=== PATIENT | male | born 1965 | race Caucasian/White ===

== ENCOUNTER 2017-11-07 20:20 | Emergency (ER) | payer OTHER ==
--- NOTE | 2017-11-07 20:38 | PDOC ---
Rapid Medical Evaluation Time Seen by Provider: 11/07/17 20:37 Medical Evaluation: 11/07/17 20:37 Pt presents to the ED: n/v , epigastric pain, unintentional wt loss Pt on brief exam: vss, no distention, good color Pt ordered for: cbc, comp, mag, lipase, mag, ua Pt to proceed to the ED Discharge Disposition - Diagnosis Nausea & vomiting - Referrals - Patient Instructions - Post Discharge Activity
[2017-11-07 20:39] VITALS: BP 103/70; PULSE 69; TEMP 98.9; BMI 32.5
[2017-11-07] MEDS ORDERED: ONDANSETRON 4 MG/2 ML VIAL IVPUSH ONE (20:39)
[2017-11-07] MEDS ORDERED: SODIUM CHLORIDE 1,000 ML IV SCH (20:39)
[2017-11-07 21:01] LABS: BASO % 0.3 % (0-2.0); EOS % 4.8 % (0-4.5); HEMATOCRIT 45.1 % (35.4-49); HEMOGLOBIN 15.1 GM/dL (11.7-16.9); LYMPH % 23.6 % (8-40); MCH 30.7 pg (25.7-33.7); MCHC 33.4 g/dl (32.0-35.9); MEAN CELL VOLUME 91.8 fl (80-96); MEAN PLT VOLUME 11.8 fl (7.5-11.1); NEUT % 57.3 % (42.8-82.8); PLATELET COUNT 122 K/MM3 (134-434); RBC 4.91 M/mm3 (4.00-5.60); RDW 14.5 % (11.9-15.9)
[2017-11-07 21:03] LABS: URINE APPEARANCE CLEAR; URINE BILIRUBIN NEGATIVE (NEGATIVE); URINE BLOOD 1+ (NEGATIVE); URINE COLOR YELLOW; URINE GLUCOSE (UA) NEGATIVE (NEGATIVE); URINE KETONE NEGATIVE (NEGATIVE); URINE LEUK ESTERASE NEGATIVE (NEGATIVE); URINE NITRITE NEGATIVE (NEGATIVE); URINE PROTEIN NEGATIVE (NEGATIVE); URINE UROBILINOGEN NEGATIVE mg/dL (0.2-1.0)
[2017-11-07 21:31] LABS: EPI CELLS RARE /HPF (FEW); URINE MUCUS RARE
[2017-11-07 21:39] LABS: ALBUMIN 3.4 g/dl (3.4-5.0); ANION GAP 8 (8-16); BLOOD UREA NITROGEN 16 mg/dL (7-18); CALCIUM 8.1 mg/dL (8.5-10.1); CHLORIDE 105 mmol/L (98-107); CO2 25 mmol/L (21-32); GLUCOSE,RANDOM 94 mg/dL (74-106); LIPASE 98 U/L (73-393); MAGNESIUM 2.1 mg/dL (1.8-2.4); POTASSIUM 3.7 mmol/L (3.5-5.1); SODIUM 138 mmol/L (136-145)
[2017-11-07 21:42] LABS: ALK PHOS 68 U/L (45-117); BILIRUBIN,TOTAL 0.6 mg/dL (0.2-1.0); CREATININE 0.9 mg/dL (0.7-1.3); SGOT/AST 11 U/L (15-37); SGPT/ALT 26 U/L (12-78); TOT PROT 6.6 g/dl (6.4-8.2)
--- NOTE | 2017-11-07 22:03 | PDOC ---
History of Present Illness - General Chief Complaint: Pain, Acute Stated Complaint: NAUSEA/VOMITING Time Seen by Provider: 11/07/17 20:37 History Source: Patient - History of Present Illness Initial Comments: 11/07/17 22:21 51 year old male work with pain to epigastric area radiating down to mid abdomen. + NV, denies diarrhea. denies sick contact denies urinary symptoms, flank pain, chest pain, diaphoresis, 11/07/17 23:22 Past History - Past Medical History Allergies/Adverse Reactions: Allergies Allergy/AdvReac Type Severity Reaction Status Date / Time No Known Allergies Allergy Verified 11/08/17 22:50 Home Medications: Ambulatory Orders Famotidine [Pepcid] 40 mg PO DAILY #14 tablet 11/08/17 Ibuprofen 800 mg PO TID #30 tablet 11/09/17 Ondansetron [Zofran *Odt*] 4 mg SL TID #30 od.tablet 11/09/17 COPD: No - Suicide/Smoking/Psychosocial Hx Smoking History: Never smoked Review of Systems - Review of Systems Able to Perform ROS?: Yes Is the patient limited Lebanese proficient: No Constitutional: No: Symptoms Reported, See HPI, Chills, Diaphoresis, Fever, Loss of Appetite, Malaise, Night Sweats, Weakness, Weight Stable, Unintentional Wgt. Loss, Unexplained wgt Loss, Other ABD/GI: Yes: Nausea, Vomiting, Abdominal cramping. No: Symptoms Reported, See HPI, Abdominal Distended, Abd. Pain w/ defecation, Blood Streaked Bowels, Constipated, Diarrhea, Difficulty Swallowing, Poor Appetite, Poor Fluid Intake, Rectal Bleeding, Indigestion, Tarry Stools, Other *Physical Exam - Vital Signs Last Vital Signs Temp Pulse Resp BP Pulse Ox 98.9 F 69 18 103/70 98 11/07/17 20:36 11/07/17 20:36 11/07/17 20:36 11/07/17 20:36 11/07/17 20:36 - Physical Exam General Appearance: Yes: Appropriately Dressed Respiratory/Chest: positive: Lungs Clear, Normal Breath Sounds Cardiovascular: positive: Regular Rhythm, Regular Rate, S1, S2. negative: Edema , JVD, Murmur, Bradycardia, Tachycardia, Diastolic Murmur, Systolic Murmur, Gallop/S3, Gallop/S4, Irregularly Irregular, Irregular, Other Gastrointestinal/Abdominal: positive: Normal Bowel Sounds, Tender (epigastric> has generalized abdominal pain), Soft Extremity: positive: Normal Inspection, Normal Range of Motion ED Treatment Course - LABORATORY CBC & Chemistry Diagram: 11/07/17 20:50 11/07/17 20:50 - ADDITIONAL ORDERS Additional order review: Laboratory Results 11/07/17 11/07/17 20:50 20:50 Sodium 138 Potassium 3.7 Chloride 105 Carbon Dioxide 25 Anion Gap 8 BUN 16 Creatinine 0.9 Creat Clearance w eGFR > 60 Random Glucose 94 Calcium 8.1 L Magnesium 2.1 Total Bilirubin 0.6 AST 11 L ALT 26 Alkaline Phosphatase 68 Total Protein 6.6 Albumin 3.4 Lipase 98 Urine Color Yellow Urine Appearance Clear Urine pH 5.0 Ur Specific [place] 1.027 Urine Protein Negative Urine Glucose (UA) Negative Urine Ketones Negative Urine Blood 1+ H Urine Nitrite Negative Urine Bilirubin Negative Urine Urobilinogen Negative Ur Leukocyte Esterase Negative Urine WBC (Auto) 1 Urine RBC (Auto) 2 Ur Epithelial Cells Rare Urine Mucus Rare 11/07/17 20:50 RBC 4.91 MCV 91.8 MCHC 33.4 RDW 14.5 MPV 11.8 H Neutrophils % 57.3 Lymphocytes % 23.6 Monocytes % 14.0 H Eosinophils % 4.8 H Basophils % 0.3 Progress Note - Progress Note Progress Note: A: Abdominal pain P: CBC CMP Lipase U/S: wnl Medical Decision Making - Medical Decision Making 11/08/17 00:21 patient reports slight improvement in pain. will d/c home with pepcid and maalox. and close pmd follow up recommended with patient. patient verbalized understanding. *DC/Admit/Observation/Transfer Diagnosis at time of Disposition: Nausea & vomiting Qualifiers: Vomiting type: unspecified Vomiting Intractability: non-intractable Qualified Code(s): R11.2 - Nausea with vomiting, unspecified Gastritis Qualifiers: Gastritis type: unspecified gastritis Chronicity: acute Gastritis bleeding: without bleeding Qualified Code(s): K29.00 - Acute gastritis without bleeding - Discharge Dispostion Disposition: HOME - Prescriptions Prescriptions: Famotidine [Pepcid] 40 mg PO DAILY #14 tablet - Referrals Referrals: Alayna Salinas MD [Primary Care Provider] - - Patient Instructions Printed Discharge Instructions: [place] Diet, DI for Gastritis Additional Instructions: start a bland diet - Post Discharge Activity Forms/Work/School Notes: Back to Work
[2017-11-07] MEDS ORDERED: FAMOTIDINE IV 20 MG/12 ML VIAL IVPUSH SCH (22:45)
[2017-11-07] MEDS ORDERED: ONDANSETRON 4 MG/2 ML VIAL ONE (23:00)
[2017-11-07] MEDS ORDERED: FAMOTIDINE 20 MG/50 ML IVPB 20 MG/50 ML MG IVPB ONE (23:00)
[2017-11-07] MEDS ORDERED: FAMOTIDINE IV 20 MG/12 ML VIAL IVPUSH ONE (23:33)
[2017-11-08] MEDS ORDERED: ACETAMINOPHEN 325 MG TABLET (FP) PO ONE (00:03)
[2017-11-08] MEDS ORDERED: ACETAMINOPHEN 325 MG TABLET (FP) ONE (00:04)
[2017-11-08] MEDS ORDERED: MAG HYDROX/AL HYDROX/SIMETH 30 ML UNIT-DOSE CUP PO ONE (00:09)
[2017-11-08] MEDS ORDERED: MAG HYDROX/AL HYDROX/SIMETH 30 ML UNIT-DOSE CUP ONE (00:11)
--- NOTE | 2017-11-08 15:10 | EKG ---
Test Reason : Blood Pressure : / mmHG Vent. Rate : 060 BPM Atrial Rate : 060 BPM P-R Int : 134 ms QRS Dur : 098 ms QT Int : 430 ms P-R-T Axes : 053 054 037 degrees QTc Int : 430 ms SINUS RHYTHM WITH MARKED SINUS ARRHYTHMIA OTHERWISE NORMAL ECG NO PREVIOUS ECGS AVAILABLE Confirmed by Reji Ramirez MD ([id number]) on 11/08/2017 3:10:28 PM Referred By: Confirmed By:Reji Ramirez MD
== END 2017-11-08 00:36 | disposition home or self-care (01) ==
LOC: JER 20:20
PROC: 3E033GC Introduction of Other Therapeutic Substance into Peripheral Vein, Percutaneous Approach (ICD-10-PCS; principal; 2017-11-07)
PROC: 3E033NZ Introduction of Analgesics, Hypnotics, Sedatives into Peripheral Vein, Percutaneous Approach (ICD-10-PCS; 2017-11-07)
PROC: 3E0333Z Introduction of Anti-inflammatory into Peripheral Vein, Percutaneous Approach (ICD-10-PCS; 2017-11-07)
DX: I88.0 Nonspecific mesenteric lymphadenitis (principal)
CPT/HCPCS: 36415; 76700-TC; 80053; 81003; 81015; 83690; 83735; 85025; 93005; 93010; 96374; 96375; 99282-25

== ENCOUNTER 2017-11-08 22:40 | Emergency (ER) | payer OTHER ==
[2017-11-08 22:52] VITALS: BP 139/67; PULSE 64; TEMP 98.5; BMI 32.5
--- NOTE | 2017-11-09 01:29 | PDOC ---
History of Present Illness - General Exam Limitations: No Limitations - History of Present Illness Initial Comments: 11/09/17 01:50 The patient is a 51 year old male, with no significant past medical history, who presents to the emergency department with, diffuse abdominal pain. Patient reports the abdominal pain as currently 8/10 but at worst was 10/10. Patient describes the abdominal pain as colicky in nature and towards the periumbilical area. Patient reports he was seen yesterday here at [facility] for nausea, vomiting and abdominal pain and was discharged with Pepcid. He reports mild relief with the Pepcid. However, the pain has progressively gotten worse since yesterday. He reports he has been unable to eat much with his last meal at 8 pm yesterday night. He denies any recent fevers, chills, headache or dizziness. He denies any recent chest pain or shortness of breath. Allergies: NKA Past surgical history: None reported. Social History: Nonsmoker. Denies recreational drug use. Social drinker. Primary Care Physician: Dr. Salinas <Javad Freeman - Last Filed: 11/09/17 04:31> - General History Source: Patient <VinnieRobert - Last Filed: 11/09/17 04:45> - General Chief Complaint: Pain Stated Complaint: NAUSEA/VOMITING Time Seen by Provider: 11/09/17 01:26 Past History <Javad Freeman - Last Filed: 11/09/17 04:31> - Past Medical History COPD: No - Suicide/Smoking/Psychosocial Hx Smoking History: Never smoked Number of Cigarettes Smoked Daily: 2 Information on smoking cessation initiated: No <Robert Birmingham - Last Filed: 11/09/17 04:45> - Past Medical History Allergies/Adverse Reactions: Allergies Allergy/AdvReac Type Severity Reaction Status Date / Time No Known Allergies Allergy Verified 11/08/17 22:50 Home Medications: Ambulatory Orders Famotidine [Pepcid] 40 mg PO DAILY #14 tablet 11/08/17 Ibuprofen 800 mg PO TID #30 tablet 11/09/17 Ondansetron [Zofran *Odt*] 4 mg SL TID #30 od.tablet 11/09/17 Review of Systems - Review of Systems Comments:: 11/09/17 01:51 CONSTITUTIONAL: Absent: fever, no chills, no fatigue EYES: Absent: visual changes ENT: Absent: ear pain, no sore throat CARDIOVASCULAR: Absent: chest pain, no palpitations RESPIRATORY: Absent: cough, no SOB GI: Present: +Diffuse abdominal pain Absent: no nausea, no vomiting, no constipation, no diarrhea GENITOURINARY: Absent: dysuria, no frequency, no hematuria MUSKULOSKELETAL: Absent: back pain, no arthralgia, no myalgia SKIN: Absent: rash NEURO: Absent: headache <Javad Freeman - Last Filed: 11/09/17 04:31> *Physical Exam - Vital Signs Last Vital Signs Temp Pulse Resp BP Pulse Ox 98.5 F 64 18 139/67 98 11/08/17 22:51 11/08/17 22:51 11/08/17 22:51 11/08/17 22:51 11/08/17 22:51 - Physical Exam Comments: 11/09/17 01:52 GENERAL: Well-appearing, well-nourished. No apparent distress. HEENT: Normocephalic, atraumatic. PERRL, EOM intact. CARDIOVASCULAR: Normal S1, S2. Regular rate and rhythm. PULMONARY: Clear to auscultation bilaterally. ABDOMEN: +Tender diffusely Soft, obese, non-distended. EXTREMITIES: Normal ROM in all four extremities. No gross deformities. SKIN: Warm, dry. No rash NEUROLOGICAL: No focal neurological deficits. <Javad Freeman - Last Filed: 11/09/17 04:31> - Vital Signs Last Vital Signs Temp Pulse Resp BP Pulse Ox 98.5 F 64 18 139/67 98 11/08/17 22:51 11/08/17 22:51 11/08/17 22:51 11/08/17 22:51 11/08/17 22:51 <Robert Birmingham - Last Filed: 11/09/17 04:45> ED Treatment Course - LABORATORY CBC & Chemistry Diagram: 11/09/17 02:00 11/09/17 02:00 - RADIOLOGY Radiograph Interpretation: 11/09/17 04:31 EXAM: CT ABDOMEN AND PELVIS HISTORY: Rule out appendicitis. COMPARISON: None. FINDINGS: Lung bases are clear. The visualized cardiac chambers are normal size and configuration. Normal liver, gallbladder, pancreas, spleen, adrenal glands and kidneys. The stomach and abdominal small and large bowel are normal. There is no aortic aneurysm. There is no significant retroperitoneal lymphadenopathy. Mildly inflammed pelvic small inflammation is noted with surrounding mesenteric edema. No abscess or free air. The appendix is normal. The urinary bladder and prostate gland are normal. No pelvic free fluid is identified. There is no significant pelvic lymphadenopathy. IMPRESSION: Mild enteritis, possibly due to infection, Crohn's disease or ischemia. Reported by Haroon Fournier MD <Javad Freeman - Last Filed: 11/09/17 04:31> - LABORATORY CBC & Chemistry Diagram: 11/09/17 02:00 11/09/17 02:00 <Robert Birmingham - Last Filed: 11/09/17 04:45> Medical Decision Making - Medical Decision Making 11/09/17 04:42 Dr. Birmingham: The scribe's documentation has been prepared under my direction and personally reviewed by me in its entirery. I confirm that the note above accurately reflects all work, treatment, procedures, and medical decision making performed by me. Ct scan of abd/pel showed mesentric adentitis. Labs remained stable from yesterdays visit. Afebrile. Pt to follow up with GI. Pt encouraged to drink plenty of fluids and bed rest, Take medications as prescribed, <Robert Birmingham - Last Filed: 11/09/17 04:45> *DC/Admit/Observation/Transfer - Attestations Scribe Attestion: 11/09/17 01:53 Documentation prepared by Javad Freeman, acting as medical director occupational health for Robert Birmingham MD. <Javad Freeman - Last Filed: 11/09/17 04:31> - Discharge Dispostion Admit: No <Robert Birmingham - Last Filed: 11/09/17 04:45> Diagnosis at time of Disposition: Nausea & vomiting, Mesenteric adenitis - Discharge Dispostion Condition at time of disposition: Stable - Prescriptions Prescriptions: Ibuprofen 800 mg PO TID #30 tablet Ondansetron [Zofran *Odt*] 4 mg SL TID #30 od.tablet - Referrals Referrals: Alayna Salinas MD [Primary Care Provider] - Peter Loredo DO [Staff Physician] - - Patient Instructions Printed Discharge Instructions: DI for Mesenteric Adenitis-Adult Additional Instructions: Please with the GI doctor referred to you here in the ER. Take medications as directed. Drink plenty of fluids. Return if any problems. - Post Discharge Activity Forms/Work/School Notes: Back to Work
[2017-11-09] MEDS ORDERED: morphine CARPU-JECT 4 MG/1 ML DISP.SYRIN IVPUSH ONE (01:30)
[2017-11-09] MEDS ORDERED: ONDANSETRON 4 MG/2 ML VIAL IVPUSH STA (01:31)
[2017-11-09] MEDS ORDERED: morphine CARPU-JECT 10 MG/1 ML DISP.SYRIN ONE (01:45)
[2017-11-09] MEDS ORDERED: ONDANSETRON 4 MG/2 ML VIAL ONE (01:46)
[2017-11-09 02:10] LABS: BASO % 0.6 % (0-2.0); EOS % 6.5 % (0-4.5); HEMATOCRIT 45.3 % (35.4-49); LYMPH % 30.1 % (8-40); MCH 30.5 pg (25.7-33.7); MEAN CELL VOLUME 92.3 fl (80-96); MEAN PLT VOLUME 12.3 fl (7.5-11.1); MONO % 13.4 % (3.8-10.2); NEUT % 49.4 % (42.8-82.8); PLATELET COUNT 120 K/MM3 (134-434); RBC 4.91 M/mm3 (4.00-5.60); RDW 14.3 % (11.9-15.9)
[2017-11-09 02:26] LABS: INR 1.09 (0.82-1.09); PROTHROMBIN TIME (PATIENT) 12.3 SEC (9.98-11.88)
[2017-11-09 02:41] LABS: ALBUMIN 3.6 g/dl (3.4-5.0); ALK PHOS 69 U/L (45-117); ANION GAP 9 (8-16); BILIRUBIN,TOTAL 0.3 mg/dL (0.2-1.0); BLOOD UREA NITROGEN 14 mg/dL (7-18); CALCIUM 8.7 mg/dL (8.5-10.1); CHLORIDE 104 mmol/L (98-107); CO2 24 mmol/L (21-32); CREATININE 1.1 mg/dL (0.7-1.3); GLUCOSE,RANDOM 118 mg/dL (74-106); LIPASE 144 U/L (73-393); MAGNESIUM 2.2 mg/dL (1.8-2.4); POTASSIUM 4.2 mmol/L (3.5-5.1); SGOT/AST 20 U/L (15-37); SGPT/ALT 35 U/L (12-78); SODIUM 137 mmol/L (136-145); TOT PROT 7.3 g/dl (6.4-8.2)
[2017-11-09] MEDS ORDERED: KETOROLAC TROMETHAMINE 30 MG/1 ML VIAL IVPUSH ONE (04:33)
[2017-11-09] MEDS ORDERED: KETOROLAC TROMETHAMINE 30 MG/1 ML VIAL ONE (04:37)
== END 2017-11-09 05:13 | disposition home or self-care (01) ==
LOC: JER 22:40
DX: I88.0 Nonspecific mesenteric lymphadenitis (principal)
CPT/HCPCS: 36415; 74177-TC; 80053; 82550; 82553; 83690; 83735; 84484; 85025; 85610; 86850; 86900; 86901; 99283-25; Q9967

== ENCOUNTER 2018-04-02 15:14 | Emergency (ER) | payer SELFPAY ==
[2018-04-02 15:25] VITALS: BP 126/71; PULSE 84; TEMP 98.4; BMI 29.4
--- NOTE | 2018-04-02 15:59 | PDOC ---
History of Present Illness - General Chief Complaint: Injury Stated Complaint: FALL/ LT SIDE PAIN Time Seen by Provider: 04/02/18 15:27 History Source: Patient Exam Limitations: No Limitations - History of Present Illness Initial Comments: 04/02/18 16:34 Patient is a 52-year-old male with no past medical history who presents emergency department today complaining of left rib pain. Patient states that 2 days ago he fell down 3 steps on escalator. Since then he has had pain to the left side. Denies loss of consciousness, headache, neck pain, back pain, dizziness and lightheadedness. Patient also states that he has right ear pain as well as difficulty hearing. He states his been going on for a week. He tried using some drops which helped initially but now his symptoms have returned. Denies fevers, chills, congestion, recent illness. Past History - Travel Traveled outside of the country in the last 30 days: No Close contact w/someone who was outside of country & ill: No - Past Medical History Allergies/Adverse Reactions: Allergies Allergy/AdvReac Type Severity Reaction Status Date / Time No Known Allergies Allergy Verified 04/02/18 15:21 Home Medications: Ambulatory Orders Amoxicillin - [Amoxicillin 500mg Capsule -] 500 mg PO BID #14 capsule 04/02/18 Ibuprofen 800 mg PO TID #30 tablet 04/02/18 Ofloxacin Otic [Floxin Otic -] 10 drop OD DAILY #100 drops 04/02/18 Oxycodone HCl/Acetaminophen [Percocet 5-325 mg Tablet] 1 tab PO Q6H PRN #20 tablet MDD 4 04/02/18 COPD: No Other medical history: DENIES. - Suicide/Smoking/Psychosocial Hx Smoking History: Current every day smoker Have you smoked in the past 12 months: Yes Number of Cigarettes Smoked Daily: 5 Information on smoking cessation initiated: No Substance Use Type: None Review of Systems - Review of Systems Able to Perform ROS?: Yes Comments:: 04/02/18 17:35 CONSTITUTIONAL: Absent: fever, chills, diaphoresis, generalized weakness, malaise, loss of appetite HEENT: Present: R ear pain, difficulty hearing Absent: rhinorrhea, nasal congestion, throat pain, throat swelling, difficulty swallowing, mouth swelling, eye pain, visual Changes CARDIOVASCULAR: Absent: chest pain, loss of consciousness, palpitations, irregular heart rate, peripheral edema RESPIRATORY: Absent: cough, shortness of breath, dyspnea with exertion, orthopnea, wheezing, stridor, hemoptysis GASTROINTESTINAL: Absent: abdominal pain, abdominal distension, nausea, vomiting, diarrhea, constipation, melena, hematochezia GENITOURINARY: Absent: dysuria, frequency, urgency, hesitancy, hematuria, flank pain, genital pain MUSCULOSKELETAL: Present: L rib pain Absent: myalgia, arthralgia, joint swelling SKIN: Absent: rash, itching, pallor HEMATOLOGIC/IMMUNOLOGIC: Absent: easy bleeding, easy bruising, lymphadenopathy, frequent infections ENDOCRINE: Absent: unexplained weight gain, unexplained weight loss, heat intolerance, cold intolerance NEUROLOGIC: Absent: headache, focal weakness or paresthesias, dizziness, unsteady gait, seizure, mental status changes, bladder or bowel incontinence PSYCHIATRIC: Absent: anxiety, depression, suicidal or homicidal ideation, hallucinations. Is the patient limited Northern Irish proficient: No *Physical Exam - Vital Signs Last Vital Signs Temp Pulse Resp BP Pulse Ox 98.4 F 84 19 126/71 97 04/02/18 15:21 04/02/18 15:21 04/02/18 15:21 04/02/18 15:21 04/02/18 15:21 - Physical Exam Comments: 04/02/18 17:35 GENERAL: Well developed, well nourished. Awake and alert. No acute distress. HEENT: Normocephalic, atraumatic. PERRLA, EOMI. No conjunctival pallor. Sclera are non- icteric. Moist mucous membranes. Oropharynx is clear. R ear canal swollen with discharge, consistent with otitis externa. Unable to visualize R TM. NECK: Supple. Full ROM. No JVD. Carotid pulses 2+ and symmetric, without bruits. No thyromegaly. No lymphadenopathy. CARDIOVASCULAR: Regular rate and rhythm. No murmurs, rubs, or gallops. Distal pulses are 2+ and symmetric. PULMONARY: No evidence of respiratory distress. Lungs clear to auscultation bilaterally. No wheezing, rales or rhonchi. MUSCULOSKELETAL TTP of the L 10-12 ribs. Normal range of motion at all joints. No bony deformities or tenderness. No CVA tenderness. EXTREMITIES: No cyanosis. No clubbing. No edema. No calf tenderness. SKIN: Warm and dry. Normal capillary refill. No rashes. No jaundice. Scabbed abrasion to L flank, healing. NEUROLOGICAL: Alert, awake, appropriate. Cranial nerves 2-12 intact. No deficits to light touch and temperature in face, upper extremities and lower extremities. No motor deficits in the in face, upper extremities and lower extremities. Normoreflexic in the upper and lower extremities. Normal speech. Toes are down- going bilaterally. Gait is normal without ataxia. PSYCHIATRIC: Cooperative. Good eye contact. Appropriate mood and affect. ED Treatment Course - RADIOLOGY Radiology Studies Ordered: Category Date Time Status RIBS-LEFT SIDE [RAD] Stat Radiology 04/02/18 15:27 Taken Medical Decision Making - Medical Decision Making 04/02/18 17:51 Pt. is a 52 y/o M who presents to the ED with R ear pain, and L rib pain s/p falling down 4 escalator steps. No LOC, head pain, neck pain. Neurologically intact. Wet read of x-ray is negative for rib fracture. Lung sounds CTAB b/l. R ear with clinical otitis externa, unable to visualize the TM. Will start on abx. ENT referral given. Will dc home. Return precautions given. Pt. understands all dc instructions and all questions were answered. *DC/Admit/Observation/Transfer Diagnosis at time of Disposition: Rib pain on left side Otitis externa Qualifiers: Otitis externa type: unspecified type Chronicity: acute Laterality: right Qualified Code(s): H60.501 - Unspecified acute noninfective otitis externa, right ear - Discharge Dispostion Disposition: HOME Condition at time of disposition: Stable Decision to Admit order: No - Prescriptions Prescriptions: Amoxicillin - [Amoxicillin 500mg Capsule -] 500 mg PO BID #14 capsule Ibuprofen 800 mg PO TID #30 tablet Ofloxacin Otic [Floxin Otic -] 10 drop OD DAILY #100 drops Oxycodone HCl/Acetaminophen [Percocet 5-325 mg Tablet] 1 tab PO Q6H PRN #20 tablet MDD 4 PRN Reason: Pain - Referrals Referrals: Danilo Cespedes MD [Primary Care Provider] - Say Koch MD [Staff Physician] - - Patient Instructions Printed Discharge Instructions: DI for Otitis Externa, DI for Rib Contusion Additional Instructions: Your rib x-ray is negative for fracture today. Please take ibuprofen 800 mg every 8 hours as needed for pain. He may take 1 Percocet every 6 hours as needed for breakthrough pain. He may apply warm compresses to the area to help with pain as well. He also has a infection of the ear canal. He was prescribed drops. On exam but cannot see the eardrum so he is also prescribed medication in case he has an inner ear infection as well. Please finish all medication as prescribed. Please follow-up with her primary care doctor this week. If his symptoms are not improving please follow-up with an ENT. A referral has been provided. Return to the emergency department if increased pain, difficulty breathing, shortness of breath, or has any changes in his symptoms. - Post Discharge Activity Forms/Work/School Notes: Back to Work
[2018-04-02] MEDS ORDERED: IBUPROFEN 400 MG TABLET (FP) PO ONE ×2 (16:38→16:40)
== END 2018-04-02 16:50 | disposition home or self-care (01) ==
LOC: JERFT 15:14
DX: S20.212A Contusion of left front wall of thorax, initial encounter (principal); H60.501 Unspecified acute noninfective otitis externa, right ear; W10.0XXA Fall (on)(from) escalator, initial encounter; Y93.89 Activity, other specified; Y92.89 Other specified places as the place of occurrence of the external cause; Y99.8 Other external cause status; F17.210 Nicotine dependence, cigarettes, uncomplicated
CPT/HCPCS: 71101-TC-FY; 99281-25